=== PATIENT | female | born 1945 | race Caucasian/White ===

== ENCOUNTER → 2018-01-05 | Outpatient (CLI) | payer MEDICARE, OTHER ==
[2014-11-21 11:00] VITALS: BP 111/61
[~2018-01-05] MED LIST: HYDR12.58 PO; Ibuprofen PO
--- NOTE | 2018-01-05 12:36 | KCIC ---
Bilateral digital screening mammograms with 3-D tomosynthesis: Reason for examination: Routine screening. Comparison is made to previous studies dated 08/19/2013 and 06/21/2012. Bilateral mammograms in CC and oblique projections were obtained with 2-D imaging and 3-D tomosynthesis imaging on a Siemens Inspiration unit and reviewed on the workstation. Interpretation was made with the benefit of CAD. The skin and nipples show no abnormalities. No abnormal axillary lymph nodes are seen. The breast parenchyma shows scattered fatty and fibroglandular density. (Breast density: Category B.) There are no dominant masses, suspicious calcifications or architectural distortion. Impression: No evidence of malignancy. Recommend routine screening. BI-RAD Category 1: Negative. "Our facility is accredited by the [employer] Mammography Program." This patient's information has been entered into a reminder system for the patient to be notified with the results of her examination and a target date for the next mammogram. Electronically signed by: Hue Mcdonald MD (01/05/2018 12:32 PM) [id number]
== END | disposition home or self-care (01) ==
LOC: KCIC MAMMO 08:33 → MERGE 09:00
PROVIDERS: ATTEND Family Medicine
DX: Z12.31 Encounter for screening mammogram for malignant neoplasm of breast (principal); I10 Essential (primary) hypertension
CPT/HCPCS: 77063; 77067

== ENCOUNTER → 2019-06-08 | Outpatient (CLI) | payer MEDICARE, OTHER ==
[2014-11-21 11:00] VITALS: BP 111/61
--- NOTE | 2019-06-08 14:33 | KCIC ---
C-spine 6 views INDICATION: Chronic neck pain. Left-sided neck pain. Surgery 2003. COMPARISON: None currently available. TECHNIQUE: AP, lateral, odontoid, bilateral oblique and swimmer's lateral views of the cervical spine were obtained. FINDINGS: Cervical spine is straightened with subtle retrolisthesis of C4 on C5 noted. Normal alignment of the lateral masses of C1 on C2. Bones show minimal demineralization. No fracture or aggressive appearing osseous lesions. ACDF surgical changes are present from C5 through C7 with interbody grafts. The hardware appears intact with no evidence of loosening, migration or failure. There is disc space narrowing at the C4-C5 disc space along with mild endplate irregularity and osteophytic spurring. The neural foramina show no significant bony stenosis with only mild narrowing of the right C4-C5 foramen due to mild uncovertebral hypertrophy. The soft tissues reveal no significant additional abnormal findings. No prevertebral soft tissue swelling or abnormal soft tissue gas. IMPRESSION: C-spine degenerative spondylosis status post C5-C7 ACDF with somewhat advanced degenerative changes at the C4-C5 level associated with subtle retrolisthesis. Consider additional flexion and extension views to assess for abnormal motion if clinically warranted. Otherwise no acute findings on C-spine x-ray series. PROCEDURE: KNEE BILAT 3V, CERVICAL SPINE 5V STUDY DATE: 06/08/2019 CLINICAL INDICATION / HISTORY: Chronic bilateral knee pain.. TECHNIQUE: AP, lateral, and tunnel views of the bilateral knees. COMPARISON: No relevant comparisons currently available. FINDINGS: Right knee: Lateral compartment joint space narrowing is present with near [id number] contact between the lateral femoral condyle and the lateral tibial plateau. These are associated with osteophytic spurs above and below the knee with no fracture or aggressive osseous lesions noted. The medial compartment shows less conspicuous medial femoral condyle and medial tibial plateau osteophytic spurring. The lateral views shows superior pole and inferior pole patellar osteophytic spurring. Trace right knee joint effusion. Left knee: Minimal valgus angulation due to asymmetric lateral knee joint space narrowing with osteophytic spurring. No fracture or aggressive osseous lesions. Minimal osteophytic spurring is also present in the superior and inferior poles of the patella and on the medial aspect of the medial femoral condyle. No joint effusion. No obvious loose bodies. 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 Electronically signed by: John Rhodes MD (06/08/2019 2:30 PM) [id number]
== END ==
LOC: KCIC 08:33
PROVIDERS: ATTEND Family Medicine
DX: M17.0 Bilateral primary osteoarthritis of knee (principal); M47.812 Spondylosis without myelopathy or radiculopathy, cervical region; M48.02 Spinal stenosis, cervical region
CPT/HCPCS: 72050; 73562

== ENCOUNTER → 2021-08-20 | Outpatient (CLI) | payer MEDICARE, OTHER ==
[2014-11-21 11:00] VITALS: BP 111/61
--- NOTE | 2021-08-20 13:42 | RAD ---
DIAGNOSTIC BILATERAL BREAST MAMMOGRAM TECHNIQUE: Bilateral digital 3-D and 2-D mammogram is performed in the routine CC and MLO projections . INDICATION: Breast pain bilateral. COMPARISON: 08/02/2020, 01/05/2018, 08/19/2013 FINDINGS: Breast Density: Category B: There are scattered fibroglandular densities. There is no suspicious mass, calcification or architectural distortion. IMPRESSION: 1. No imaging evidence of malignancy. ASSESSMENT: BI-RADS 1: Negative. RECOMMENDATION: Routine annual screening mammogram. The facility will notify the patient of the results via mail. Patient information will be entered int o the mammography reminder system with a target recall date for the next mammogram. A reminder letter will be generated by the facility. Electronically signed by: Reinier Price MD (08/20/2021 1:40 PM) [id number]
== END ==
LOC: MAMMO 08:21
PROVIDERS: ATTEND Obstetrics & Gynecology
DX: N64.4 Mastodynia (principal)
CPT/HCPCS: 77066; G0279; 77062